=== PATIENT | female | born 1995 | race Caucasian/White ===

== ENCOUNTER 2016-06-02 23:47 | Emergency (ER) | payer MEDICAID ==
[~2016-06-02] VITALS: Ht 165.1 cm; Wt 78.7 kg
[~2016-06-02 23:47] MED LIST: CEFD300C2 PO; HYDR-3240 PO; IBUP-1222 PO; METR500T PO; NAPR-874 PO; OXYC-302 PO; PEDI1TAB24 PO; PREDNISONE
[2016-06-03 00:27] LABS: HCG UR OBC PASS; PATH.CAST-FLAG NOT PRESENT; SPERM-FLAG NOT PRESENT; SRC-FLAG NOT PRESENT; XTAL-FLAG NOT PRESENT; YLC-FLAG NOT PRESENT
[2016-06-03 04:02] LABS: ASPARTATE AMINO TRANSFERASE 12 U/L (15-37); BLOOD UREA NITROGEN 13 mg/dL (7-18)
[2016-06-03 04:49] LABS: PATH.CAST-FLAG NOT PRESENT; SPERM-FLAG NOT PRESENT; SRC-FLAG NOT PRESENT; XTAL-FLAG NOT PRESENT; YLC-FLAG NOT PRESENT
[2016-06-03] MEDS ORDERED: CEFTRIAXONE 250 MG IM ONE (05:00)
[2016-06-03] MEDS ORDERED: AZITHROMYCIN 500 MG TABLET PO ONE (05:00)
[2016-06-03] MEDS ORDERED: CEFTRIAXONE 250 MG ONE (05:36)
[2016-06-03] MEDS ORDERED: LIDOCAINE 1%, 20ML ONE (05:36)
[2016-06-03] MEDS ORDERED: AZITHROMYCIN 500 MG TABLET ONE (05:36)
[2016-06-03 05:46] VITALS: BP 121/74
== END 2016-06-03 05:51 | disposition home or self-care (01) ==
LOC: ED 23:59
DX: N30.90 Cystitis, unspecified without hematuria (principal); R10.84 Generalized abdominal pain; A56.09 Other chlamydial infection of lower genitourinary tract; A54.03 Gonococcal cervicitis, unspecified; N89.8 Other specified noninflammatory disorders of vagina
CPT/HCPCS: 36415; 51701; 80053; 81001; 81025; 83690; 85025; 87086; 87147; 87210; 87491; 87591; 87808; 96372; 99284; J0696; P9612

== ENCOUNTER 2016-08-12 22:54 | Emergency (ER) | payer MEDICAID ==
[~2016-08-12] VITALS: Ht 167.6 cm; Wt 76.6 kg
[~2016-08-12 22:54] MED LIST changes: -CEFD300C2 PO; +CEFD300C37 PO
[2016-08-12 22:58] VITALS: BP 114/72
== END 2016-08-13 00:48 | disposition home or self-care (01) ==
LOC: ED 08-13 00:40
DX: J02.8 Acute pharyngitis due to other specified organisms (principal); B97.89 Other viral agents as the cause of diseases classified elsewhere
CPT/HCPCS: 87081; 87147; 87880; 99284

== ENCOUNTER 2017-04-03 16:22 | Emergency (ER) | payer MEDICAID ==
[~2017-04-03] VITALS: Ht 167.6 cm; Wt 60.6 kg
[~2017-04-03 16:22] MED LIST changes: -NAPR-874 PO; +NAPR250T6 PO
[2017-04-03 17:29] LABS: BASOPHILS # (AUTO) 0.03 x10^3/uL (0-0.1); BASOPHILS % (AUTO) 1 % (0-1); EOSINOPHILS # (AUTO) 0.05 x10^3/uL (0-0.4); EOSINOPHILS % (AUTO) 1 % (1-7); LYMPHOCYTES % (AUTO) 30 % (22-44); MD NO; MEAN CORPUSCULAR HEMOGLOBIN 31.7 pg (27.0-34.8); MEAN CORPUSCULAR HGB CONC 33.5 g/dL (32.4-35.8); MEAN CORPUSCULAR VOLUME 94.5 fL (80-100); MEAN PLATELET VOLUME 7.8 fL (7.4-10.4); MONOCYTES # (AUTO) 0.65 x10^3/uL (0.2-0.8); MONOCYTES % (AUTO) 11 % (2-9); NEUTROPHILS # (AUTO) 3.47 x10^3/uL (1.8-6.8); NEUTROPHILS % (AUTO) 58 % (42-75); PLATELET COUNT 301 x10^3/uL (130-400); RED BLOOD COUNT 4.48 x10^6/uL (3.82-5.3); RED CELL DISTRIBUTION WIDTH 13.2 % (9.6-15.2)
[2017-04-03] MEDS ORDERED: SODIUM CHLORIDE 0.9% 1,000ML IVBOLUS ONE (17:30)
[2017-04-03] MEDS ORDERED: SODIUM CHLORIDE FLUSH 10ML SYR IVF ONE (17:30)
[2017-04-03 17:39] LABS: ALANINE AMINOTRANSFERASE 19 U/L (12-78); ALBUMIN 3.8 g/dL (3.4-5.0); ANION GAP 5 mmol/L (5-15); CALCIUM 8.3 mg/dL (8.5-10.1); CHLORIDE 109 mmol/L (98-107); CREATININE 0.76 mg/dL (0.55-1.02)
[2017-04-03 17:44] LABS: ALKALINE PHOSPHATASE 73 U/L (45-117); BILIRUBIN,TOTAL 0.5 mg/dL (0.2-1.0); CREATINE KINASE, TOTAL 161 U/L (26-192); TOTAL PROTEIN 7.7 g/dL (6.4-8.2)
[2017-04-03 18:35] VITALS: BP 109/46
== END 2017-04-03 19:15 | disposition home or self-care (01) ==
LOC: ED 19:07
DX: J20.8 Acute bronchitis due to other specified organisms (principal)
CPT/HCPCS: 36415; 71046; 80053; 82550; 84703; 85025; 93005; 96360; 99285; J7030

== ENCOUNTER 2017-10-12 21:56 | Emergency (ER) | payer MEDICAID ==
[~2017-10-12] VITALS: Ht 165.1 cm; Wt 67.9 kg
[2017-10-12 23:14] LABS: BASOPHILS # (AUTO) 0.02 x10^3/uL (0-0.1); BASOPHILS % (AUTO) 0 % (0-1); EOSINOPHILS # (AUTO) 0.06 x10^3/uL (0-0.4); EOSINOPHILS % (AUTO) 1 % (1-7); LYMPHOCYTES # (AUTO) 2.08 x10^3/uL (1-3.4); LYMPHOCYTES % (AUTO) 41 % (22-44); MD NO; MEAN CORPUSCULAR HEMOGLOBIN 33.6 pg (27.0-34.8); MEAN CORPUSCULAR HGB CONC 34.6 g/dL (32.4-35.8); MEAN CORPUSCULAR VOLUME 97.2 fL (80-100); MEAN PLATELET VOLUME 7.7 fL (7.4-10.4); MONOCYTES # (AUTO) 0.51 x10^3/uL (0.2-0.8); MONOCYTES % (AUTO) 10 % (2-9); NEUTROPHILS # (AUTO) 2.43 x10^3/uL (1.8-6.8); NEUTROPHILS % (AUTO) 48 % (42-75); PLATELET COUNT 232 x10^3/uL (130-400); RED BLOOD COUNT 3.87 x10^6/uL (3.82-5.3); RED CELL DISTRIBUTION WIDTH 12.5 % (9.6-15.2)
[2017-10-12 23:27] LABS: ALBUMIN 3.5 g/dL (3.4-5.0); ANION GAP 5 mmol/L (5-15); CALCIUM 7.8 mg/dL (8.5-10.1); CHLORIDE 108 mmol/L (98-107); CREATININE 0.65 mg/dL (0.55-1.02)
[2017-10-12 23:32] VITALS: BP 102/53
[2017-10-12 23:33] LABS: MICROSCOPIC NOT IND
[2017-10-12 23:35] LABS: CULTURE INDICATED? NO
== END 2017-10-13 00:17 | disposition home or self-care (01) ==
LOC: ED 23:59
DX: O20.0 Threatened abortion (principal); F17.200 Nicotine dependence, unspecified, uncomplicated; Z3A.00 Weeks of gestation of pregnancy not specified
CPT/HCPCS: 36415; 76801; 80048; 81003; 82040; 84702; 85025; 86901; 99285

== ENCOUNTER 2017-11-30 15:57 | Emergency (ER) | payer MEDICAID ==
[~2017-11-30] VITALS: Ht 165.1 cm; Wt 67.5 kg
[2017-11-30 16:35] LABS: BASOPHILS # (AUTO) 0.01 x10^3/uL (0-0.1); BASOPHILS % (AUTO) 0 % (0-1); EOSINOPHILS # (AUTO) 0.04 x10^3/uL (0-0.4); EOSINOPHILS % (AUTO) 1 % (1-7); LYMPHOCYTES # (AUTO) 1.68 x10^3/uL (1-3.4); LYMPHOCYTES % (AUTO) 24 % (22-44); MD NO; MEAN CORPUSCULAR HEMOGLOBIN 33.1 pg (27.0-34.8); MEAN CORPUSCULAR HGB CONC 34.5 g/dL (32.4-35.8); MEAN CORPUSCULAR VOLUME 95.9 fL (80-100); MEAN PLATELET VOLUME 7.7 fL (7.4-10.4); MONOCYTES # (AUTO) 0.36 x10^3/uL (0.2-0.8); MONOCYTES % (AUTO) 5 % (2-9); NEUTROPHILS # (AUTO) 5.03 x10^3/uL (1.8-6.8); NEUTROPHILS % (AUTO) 71 % (42-75); PLATELET COUNT 251 x10^3/uL (130-400); RED BLOOD COUNT 3.82 x10^6/uL (3.82-5.3); RED CELL DISTRIBUTION WIDTH 12.7 % (9.6-15.2)
[2017-11-30 16:46] LABS: ALBUMIN 3.2 g/dL (3.4-5.0); ANION GAP 5 mmol/L (5-15); CALCIUM 8.5 mg/dL (8.5-10.1); CHLORIDE 109 mmol/L (98-107); CREATININE 0.54 mg/dL (0.55-1.02)
[2017-11-30 18:32] LABS: MICROSCOPIC NOT IND
[2017-11-30 18:40] LABS: CULTURE INDICATED? NO
[2017-11-30 20:13] VITALS: BP 119/71
== END 2017-11-30 20:21 | disposition home or self-care (01) ==
LOC: ED 20:00
DX: O20.0 Threatened abortion (principal); O44.12 Complete placenta previa with hemorrhage, second trimester
CPT/HCPCS: 36415; 76815; 80048; 81003; 82040; 84702; 85025; 86901; 99285

== ENCOUNTER 2018-02-25 21:21 | Outpatient (CLI) | payer MEDICAID ==
[~2018-02-25] VITALS: Ht 167.6 cm; Wt 65.9 kg
[2018-02-25 22:07] LABS: MICROSCOPIC AUTO
[2018-02-25 22:20] LABS: AMPHETAMINE SCREEN, URINE Positive (Negative); BARBITURATE SCREEN, URINE Negative (Negative); BENZODIAZEPINE SCREEN, URINE Negative (Negative); CANNABINOID SCREEN, URINE Negative (Negative); COCAINE SCREEN, URINE Negative (Negative); METHADONE SCREEN, URINE Negative (Negative); OPIATE SCREEN, URINE Negative (Negative)
[2018-02-25 22:26] LABS: BASOPHILS # (AUTO) 0.01 x10^3/uL (0-0.1); BASOPHILS % (AUTO) 0 % (0-1); EOSINOPHILS # (AUTO) 0.04 x10^3/uL (0-0.4); EOSINOPHILS % (AUTO) 1 % (1-7); LYMPHOCYTES # (AUTO) 1.64 x10^3/uL (1-3.4); LYMPHOCYTES % (AUTO) 20 % (22-44); MD NO; MEAN CORPUSCULAR HGB CONC 34.7 g/dL (32.4-35.8); MEAN CORPUSCULAR VOLUME 95.2 fL (80-100); MEAN PLATELET VOLUME 7.6 fL (7.4-10.4); MONOCYTES # (AUTO) 0.58 x10^3/uL (0.2-0.8); MONOCYTES % (AUTO) 7 % (2-9); NEUTROPHILS # (AUTO) 5.92 x10^3/uL (1.8-6.8); NEUTROPHILS % (AUTO) 72 % (42-75); PLATELET COUNT 264 x10^3/uL (130-400); RED BLOOD COUNT 3.33 x10^6/uL (3.82-5.3); RED CELL DISTRIBUTION WIDTH 12.4 % (9.6-15.2)
== END 2018-02-25 23:38 | disposition home or self-care (01) ==
LOC: LDOP 21:21
PROVIDERS: ATTEND Obstetrics & Gynecology
DX: O62.9 Abnormality of forces of labor, unspecified (principal); Z3A.24 24 weeks gestation of pregnancy
CPT/HCPCS: 36415; 59025; 80307; 81001; 84112; 85025; 86592; 86762; 86850; 86900; 87086; 87340; 87806; 99211; G0463; G0475

== ENCOUNTER 2018-03-22 22:50 | Outpatient (CLI) | payer MEDICAID ==
[~2018-03-22] VITALS: Ht 165.1 cm; Wt 79.5 kg
[2018-03-22 22:55] VITALS: BP 112/55
[2018-03-22 23:23] LABS: MICROSCOPIC NOT IND
[2018-03-22] MEDS ORDERED: ACETAMINOPHEN 325 MG TABLET PO PRN (23:30)
[2018-03-22] MEDS ORDERED: PREN1TAB60 PO (23:31)
[2018-03-22] MEDS ORDERED: ACET325T14 PO (23:32)
[2018-03-22] MEDS ORDERED: ACETAMINOPHEN 325 MG TABLET ONE (23:33)
[2018-03-22 23:36] LABS: AMPHETAMINE SCREEN, URINE Negative (Negative); BARBITURATE SCREEN, URINE Negative (Negative); BENZODIAZEPINE SCREEN, URINE Negative (Negative); CANNABINOID SCREEN, URINE Negative (Negative); COCAINE SCREEN, URINE Negative (Negative); METHADONE SCREEN, URINE Negative (Negative); OPIATE SCREEN, URINE Negative (Negative)
== END 2018-03-22 23:59 | disposition home or self-care (01) ==
LOC: LDOP 22:50
PROVIDERS: ATTEND Obstetrics & Gynecology
DX: O26.893 Other specified pregnancy related conditions, third trimester (principal); Z3A.28 28 weeks gestation of pregnancy; R10.9 Unspecified abdominal pain
CPT/HCPCS: 59025; 80307; 81003; 87086; 99211; G0463

== ENCOUNTER 2018-05-20 11:24 | Outpatient (CLI) | payer MEDICAID ==
[~2018-05-20] VITALS: Ht 165.1 cm; Wt 86.4 kg
[~2018-05-20 11:24] MED LIST changes: +ACET325T14 PO; +PREN1TAB60 PO
[2018-05-20 12:56] VITALS: BP 111/61
[2018-05-20 13:17] LABS: MICROSCOPIC AUTO
[2018-05-20 13:24] LABS: AMPHETAMINE SCREEN, URINE Negative (Negative); BARBITURATE SCREEN, URINE Negative (Negative); BENZODIAZEPINE SCREEN, URINE Negative (Negative); CANNABINOID SCREEN, URINE Negative (Negative); COCAINE SCREEN, URINE Negative (Negative); METHADONE SCREEN, URINE Negative (Negative); OPIATE SCREEN, URINE Negative (Negative)
== END 2018-05-20 15:31 | disposition home or self-care (01) ==
LOC: LDOP 11:24
PROVIDERS: ATTEND Obstetrics & Gynecology
DX: Z23 Encounter for immunization (principal); Z34.93 Encounter for supervision of normal pregnancy, unspecified, third trimester; Z3A.36 36 weeks gestation of pregnancy; Z79.899 Other long term (current) drug therapy
CPT/HCPCS: 59025; 80307; 81001; 89060; 90471; 90656; 99211; G0009; G0463; Q0114

== ENCOUNTER 2018-05-28 06:08 | Inpatient (IN) | payer MEDICAID ==
[~2018-05-28] VITALS: Ht 165.1 cm; Wt 84.0 kg
[2018-05-28] MEDS ORDERED: OXYTOCIN 30U/ 0.9% NaCL 500ML 500 ML IV ONE (06:10)
[2018-05-28] MEDS ORDERED: ESCI5TAB7 PO (06:20)
[2018-05-28 06:21] VITALS: BP 119/64
[2018-05-28] MEDS ORDERED: ONDANSETRON 2MG/ML, 2ML IVPush PRN ×2 (06:30→15:00)
[2018-05-28] MEDS ORDERED: FENTANYL PF 100 MCG/2ML IV PRN (06:30)
[2018-05-28] MEDS ORDERED: CALCIUM CARBONATE 500 MG TAB.CHEW PO PRN (06:30)
[2018-05-28] MEDS ORDERED: FENTANYL PF 100 MCG/2ML IVPush PRN (06:30)
[2018-05-28 06:32] LABS: BASOPHILS # (AUTO) 0.04 x10^3/uL (0-0.1); BASOPHILS % (AUTO) 1 % (0-1); EOSINOPHILS # (AUTO) 0.06 x10^3/uL (0-0.4); EOSINOPHILS % (AUTO) 1 % (1-7); LYMPHOCYTES # (AUTO) 2.24 x10^3/uL (1-3.4); LYMPHOCYTES % (AUTO) 30 % (22-44); MD NO; MEAN CORPUSCULAR HEMOGLOBIN 27.9 pg (27.0-34.8); MEAN CORPUSCULAR HGB CONC 33.8 g/dL (32.4-35.8); MEAN CORPUSCULAR VOLUME 82.5 fL (80-100); MEAN PLATELET VOLUME 7.1 fL (7.4-10.4); MONOCYTES # (AUTO) 0.41 x10^3/uL (0.2-0.8); MONOCYTES % (AUTO) 5 % (2-9); NEUTROPHILS # (AUTO) 4.75 x10^3/uL (1.8-6.8); NEUTROPHILS % (AUTO) 63 % (42-75); PLATELET COUNT 285 x10^3/uL (130-400); RED BLOOD COUNT 3.59 x10^6/uL (3.82-5.3); RED CELL DISTRIBUTION WIDTH 15.3 % (9.6-15.2)
[2018-05-28] MEDS: LACTATED RINGERS 1,000 ML IV SCH ×2 (06:42→15:12)
[2018-05-28] MEDS ORDERED: MISOPROSTOL 25 MCG TABLET ONE ×2 (07:00→10:54)
[2018-05-28] MEDS ORDERED: MISOPROSTOL 25 MCG TABLET VG PRN (07:00)
[2018-05-28] MEDS ORDERED: PENICILLIN GK 5,000,000 UNITS in DEXTROSE 5% 100 ML IVPB ONE (07:00)
[2018-05-28 07:06] LABS: AMPHETAMINE SCREEN, URINE Negative (Negative); BARBITURATE SCREEN, URINE Negative (Negative); BENZODIAZEPINE SCREEN, URINE Negative (Negative); CANNABINOID SCREEN, URINE Negative (Negative); COCAINE SCREEN, URINE Negative (Negative); METHADONE SCREEN, URINE Negative (Negative); OPIATE SCREEN, URINE Negative (Negative)
[2018-05-28] MEDS ORDERED: OXYTOCIN 30U/ 0.9% NaCL 500ML 500 ML ONE ×2 (07:39→19:22)
[2018-05-28] MEDS ORDERED: NEWBORN KIT ONE (07:39)
[2018-05-28] MEDS ORDERED: DIPH,PERTUSS(ACELL),TET VAC/PF NC IM-VACC ONE ×3 (10:18→15:25)
[2018-05-28] MEDS ORDERED: FENTANYL/BUPIV./NS/PF 250 ML EPIDCONT SCH ×2 (10:28→14:41)
[2018-05-28] MEDS: PENICILLIN GK 2,500,000 UNITS in DEXTROSE 5% 100 ML IVPB SCH ×2 (11:10→15:04)
[2018-05-28] MEDS ORDERED: OXYTOCIN 30U/ 0.9% NaCL 500ML 500 ML IV PRN (11:15)
[2018-05-28] MEDS ORDERED: FENTANYL PF 500 MCG, BUPIVACAINE/PF 0.5%, 30ML 62.5 ML in SODIUM CHLORIDE 0.9% 177.5 ML EPIDCONT SCH (11:30)
[2018-05-28] MEDS ORDERED: LIDOCAINE 1%, 20ML ONE (12:54)
[2018-05-28] MEDS ORDERED: MISOPROSTOL 200 MCG TABLET ONE (12:55)
[2018-05-28] MEDS ORDERED: LACTATED RINGERS 1,000 ML IV SCH ×2 (13:08→14:41)
[2018-05-28] MEDS ORDERED: LACTATED RINGERS 1,000 ML IVBOLUS PRN ×2 (13:30→15:00)
[2018-05-28] MEDS ORDERED: BUPIVACAINE 0.25% ONE (14:15)
[2018-05-28] MEDS ORDERED: LIDOCAINE/PF 1.5%-EPI 1:200K, 30ML ONE (14:15)
[2018-05-28] MEDS ORDERED: EPHEDRINE 50 MG/ML, 1ML IVPush PRN (15:00)
[2018-05-28] MEDS ORDERED: NALOXONE 0.4 MG/ML, 1ML IVPush PRN (15:00)
[2018-05-28] MEDS ORDERED: DIPHENHYDRAMINE 50 MG/ML, 1ML IVPush PRN (15:00)
[2018-05-28] MEDS ORDERED: BISACODYL 10 MG SUPP PR PRN (19:00)
[2018-05-28] MEDS ORDERED: METHYLERGONOVINE 0.2 MG/ML IM PRN (19:00)
[2018-05-28] MEDS ORDERED: OXYTOCIN 10 UNITS/ML, 1ML IM PRN (19:00)
[2018-05-28] MEDS ORDERED: HYDROcodone/APAP 5/325 TABLET PO PRN (19:00)
[2018-05-28] MEDS ORDERED: DIPH,PERTUSS(ACELL),TET VAC/PF NC IM-VACC PRN (19:00)
[2018-05-28] MEDS ORDERED: MISOPROSTOL 200 MCG TABLET PR PRN (19:00)
[2018-05-28] MEDS: OXYTOCIN 30U/ 0.9% NaCL 500ML 500 ML IV SCH (19:29)
[2018-05-28 21:00] VITALS: BP 103/56
[2018-05-29 00:30] VITALS: BP 109/62
[2018-05-29 02:03] LABS: BASOPHILS # (AUTO) 0.02 x10^3/uL (0-0.1); BASOPHILS % (AUTO) 0 % (0-1); EOSINOPHILS # (AUTO) 0.04 x10^3/uL (0-0.4); EOSINOPHILS % (AUTO) 0 % (1-7); LYMPHOCYTES # (AUTO) 1.94 x10^3/uL (1-3.4); LYMPHOCYTES % (AUTO) 19 % (22-44); MD NO; MEAN CORPUSCULAR HEMOGLOBIN 26.2 pg (27.0-34.8); MEAN CORPUSCULAR HGB CONC 31.5 g/dL (32.4-35.8); MEAN PLATELET VOLUME 7.4 fL (7.4-10.4); MONOCYTES # (AUTO) 0.77 x10^3/uL (0.2-0.8); MONOCYTES % (AUTO) 8 % (2-9); NEUTROPHILS # (AUTO) 7.55 x10^3/uL (1.8-6.8); NEUTROPHILS % (AUTO) 73 % (42-75); PLATELET COUNT 238 x10^3/uL (130-400); RED BLOOD COUNT 3.43 x10^6/uL (3.82-5.3); RED CELL DISTRIBUTION WIDTH 14.6 % (9.6-15.2)
[2018-05-29 04:20] VITALS: BP 105/59
[2018-05-29] MEDS: OXYTOCIN 30U/ 0.9% NaCL 500ML 500 ML IV SCH (04:56)
[2018-05-29 08:55] VITALS: BP 94/62
[2018-05-29] MEDS: DOCUSATE 100 MG CAPSULE PO PRN ×2 (08:59→21:05)
[2018-05-29] MEDS: PRENATAL VIT/IRON/FA 1 EACH TABLET PO SCH (08:59)
[2018-05-29] MEDS: IBUPROFEN 600 MG TABLET PO PRN ×3 (08:59→21:05)
[2018-05-29 12:45] VITALS: BP 107/69
[2018-05-29 16:30] VITALS: BP 108/62
[2018-05-29 20:30] VITALS: BP 125/72
[2018-05-30] MEDS: IBUPROFEN 600 MG TABLET PO PRN ×2 (04:00→11:01)
[2018-05-30 07:35] VITALS: BP 101/63
[2018-05-30] MEDS: DOCUSATE 100 MG CAPSULE PO PRN (11:00)
[2018-05-30] MEDS: PRENATAL VIT/IRON/FA 1 EACH TABLET PO SCH (11:01)
[2018-05-30 11:35] VITALS: BP 114/67
== END 2018-05-30 12:35 | disposition home or self-care (01) | DRG 807 ==
LOC: LDIP 06:08 → 2NW 20:33
PROVIDERS: ADMIT Obstetrics & Gynecology; ATTEND Obstetrics & Gynecology
PROC: 10E0XZZ Delivery of Products of Conception, External Approach (ICD-10-PCS; principal; 2018-05-28)
PROC: 3E033VJ Introduction of Other Hormone into Peripheral Vein, Percutaneous Approach (ICD-10-PCS; 2018-05-28)
PROC: 3E0R3BZ Introduction of Anesthetic Agent into Spinal Canal, Percutaneous Approach (ICD-10-PCS; 2018-05-28)
PROC: 00HU33Z Insertion of Infusion Device into Spinal Canal, Percutaneous Approach (ICD-10-PCS; 2018-05-28)
PROC: 10907ZC Drainage of Amniotic Fluid, Therapeutic from Products of Conception, Via Natural or Artificial Opening (ICD-10-PCS; 2018-05-28)
DX: O69.81X0 Labor and delivery complicated by cord around neck, without compression, not applicable or unspecified (principal); Z37.0 Single live birth; O99.52 Diseases of the respiratory system complicating childbirth; J45.909 Unspecified asthma, uncomplicated; O99.824 Streptococcus B carrier state complicating childbirth; Z3A.39 39 weeks gestation of pregnancy; Z84.89 Family history of other specified conditions; Z91.040 Latex allergy status
CPT/HCPCS: 36415; 80307; 85025; 86850; 86900; 90715; G0378; J2540; J3010; J3490; J2590; J7050; J7120

== ENCOUNTER 2019-06-03 23:22 | Emergency (ER) | payer MEDICAID, OTHER ==
[~2019-06-03] VITALS: Ht 167.6 cm; Wt 85.0 kg
[~2019-06-03 23:22] MED LIST changes: +ESCI5TAB7 PO
[2019-06-03 23:31] VITALS: BP 131/79
[2019-06-04 00:22] LABS: BASOPHILS # (AUTO) 0.02 x10^3/uL (0-0.1); BASOPHILS % (AUTO) 0 % (0-1); EOSINOPHILS # (AUTO) 0.05 x10^3/uL (0-0.4); EOSINOPHILS % (AUTO) 1 % (1-7); LYMPHOCYTES # (AUTO) 1.81 x10^3/uL (1-3.4); LYMPHOCYTES % (AUTO) 34 % (22-44); MD NO; MEAN CORPUSCULAR HEMOGLOBIN 32.1 pg (27.0-34.8); MEAN CORPUSCULAR HGB CONC 33.9 g/dL (32.4-35.8); MEAN CORPUSCULAR VOLUME 94.6 fL (80-100); MEAN PLATELET VOLUME 8.3 fL (7.4-10.4); MONOCYTES # (AUTO) 0.38 x10^3/uL (0.2-0.8); MONOCYTES % (AUTO) 7 % (2-9); NEUTROPHILS % (AUTO) 58 % (42-75); PLATELET COUNT 281 x10^3/uL (130-400); RED BLOOD COUNT 4.51 x10^6/uL (3.82-5.3); RED CELL DISTRIBUTION WIDTH 13.1 % (9.6-15.2)
[2019-06-04 00:29] LABS: ALBUMIN 3.9 g/dL (3.4-5.0); ANION GAP 4 mmol/L (5-15); CALCIUM 8.9 mg/dL (8.5-10.1); CHLORIDE 111 mmol/L (98-107); CREATININE 0.76 mg/dL (0.55-1.02)
[2019-06-04 00:36] LABS: CULTURE INDICATED? YES; MICROSCOPIC INDICATED
== END 2019-06-04 01:54 | disposition home or self-care (01) ==
LOC: ED 06-04 01:08
DX: R10.31 Right lower quadrant pain (principal); R10.32 Left lower quadrant pain; M54.42 Lumbago with sciatica, left side; M54.41 Lumbago with sciatica, right side
CPT/HCPCS: 36415; 76830; 80048; 81001; 82040; 84703; 85025; 87086; 99284

== ENCOUNTER 2019-12-12 08:20 | Emergency (ER) | payer MEDICAID ==
[~2019-12-12] VITALS: Ht 167.6 cm; Wt 65.9 kg
--- NOTE | 2019-12-12 08:59 | NUR ---
first contact with pt. pt c/o right sided flank pain and abd pain x 1 day. pt's aox4. resps even and unlabored. bp/spo2 monitors in place. call light within reach. pa at bedside evaluating at this time.
--- NOTE | 2019-12-12 09:12 | NUR ---
urine collected and ua sent.
[2019-12-12 09:21] LABS: BASOPHILS # (AUTO) 0.03 x10^3/uL (0-0.1); BASOPHILS % (AUTO) 0 % (0-1); EOSINOPHILS # (AUTO) 0.06 x10^3/uL (0-0.4); EOSINOPHILS % (AUTO) 1 % (1-7); LYMPHOCYTES # (AUTO) 1.88 x10^3/uL (1-3.4); LYMPHOCYTES % (AUTO) 29 % (22-44); MD NO; MEAN PLATELET VOLUME 7.2 fL (7.4-10.4); MONOCYTES # (AUTO) 0.39 x10^3/uL (0.2-0.8); MONOCYTES % (AUTO) 6 % (2-9); NEUTROPHILS # (AUTO) 4.14 x10^3/uL (1.8-6.8); NEUTROPHILS % (AUTO) 64 % (42-75); PLATELET COUNT 300 x10^3/uL (130-400); RED BLOOD COUNT 3.85 x10^6/uL (3.82-5.3); RED CELL DISTRIBUTION WIDTH 12.5 % (9.6-15.2)
[2019-12-12 09:23] LABS: MICROSCOPIC INDICATED
[2019-12-12 09:33] LABS: ALANINE AMINOTRANSFERASE 18 U/L (12-78); ALBUMIN 3.2 g/dL (3.4-5.0); ANION GAP 6 mmol/L (5-15); CALCIUM 8.5 mg/dL (8.5-10.1); CHLORIDE 109 mmol/L (98-107); CREATININE 0.63 mg/dL (0.55-1.02)
--- NOTE | 2019-12-12 09:38 | NUR ---
warm blanket provided per request at this time.
[2019-12-12 09:50] LABS: ALKALINE PHOSPHATASE 52 U/L (45-117); BILIRUBIN,TOTAL 0.3 mg/dL (0.2-1.0); TOTAL PROTEIN 6.9 g/dL (6.4-8.2)
[2019-12-12 10:54] VITALS: BP 108/56
--- NOTE | 2019-12-12 11:01 | NUR ---
PT REPORT FROM DEEPTI NEWBERRY. PT CARE ASSUMED. PT RESTING QUIETLY ON GURNEY, DENIES PAIN CURRENTLY, RESP EVEN & UNLABORED, SPEECH CLEAR, SKIN WNL. SIDE RAIL UP X1, CALL LIGHT W/IN REACH.
== END 2019-12-12 11:46 | disposition home or self-care (01) ==
LOC: ED 09:06
DX: O23.41 Unspecified infection of urinary tract in pregnancy, first trimester (principal); Z3A.10 10 weeks gestation of pregnancy
CPT/HCPCS: 36415; 76830; 80053; 81001; 83690; 84702; 84703; 85025; 87086; 99284

== ENCOUNTER 2020-01-03 15:39 | Emergency (ER) | payer MEDICAID ==
[~2020-01-03] VITALS: Ht 167.6 cm; Wt 66.2 kg
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
[2020-01-03] MEDS ORDERED: PREN1TAB60 PO (16:19)
--- NOTE | 2020-01-03 16:20 | NUR ---
ARINA IN SW/CASE MGMT PAGED FOR PT EVAL
--- NOTE | 2020-01-03 16:30 | NUR ---
PT TO RAD/CT
--- NOTE | 2020-01-03 16:44 | NUR ---
BEDSIDE REPORT AND TRANSFER OF CARE TO VINEET TATUM AT THIS TIME.
--- NOTE | 2020-01-03 16:54 | NUR ---
SW AT BEDSIDE.
--- NOTE | 2020-01-03 17:01 | NUR ---
PT VOICEING CONCERNS ABOUT THE 2/2 TO THE STRANGULATION. C/O INTERMITTANT VAGINAL CRAMPING BUT DENIES ANY DISCHARGE OR BLEEDING
--- NOTE | 2020-01-03 17:05 | NUR ---
ER PA INFORMED OF PT CONCERN FOR . NO NEW ORDERS REC'D PT TO F/U WITH CENTER
[2020-01-03 17:43] LABS: BASOPHILS % (AUTO) 0 % (0-1); EOSINOPHILS % (AUTO) 1 % (1-7); LYMPHOCYTES % (AUTO) 19 % (22-44); MEAN CORPUSCULAR HEMOGLOBIN 32.5 pg (27.0-34.8); MEAN CORPUSCULAR HGB CONC 33.8 g/dL (32.4-35.8); MEAN PLATELET VOLUME 7.5 fL (7.4-10.4); MONOCYTES % (AUTO) 8 % (2-9); NEUTROPHILS % (AUTO) 72 % (42-75); PLATELET COUNT 255 x10^3/uL (130-400); RED BLOOD COUNT 3.83 x10^6/uL (3.82-5.3); RED CELL DISTRIBUTION WIDTH 12.5 % (9.6-15.2)
[2020-01-03 17:48] LABS: ANION GAP 6 mmol/L (5-15); CALCIUM 8.5 mg/dL (8.5-10.1); CHLORIDE 110 mmol/L (98-107); CREATININE 0.59 mg/dL (0.55-1.02)
[2020-01-03 17:50] LABS: MD NO
[2020-01-03 18:35] VITALS: BP 108/65
--- NOTE | 2020-01-03 18:36 | NUR ---
Patient/Caregiver given discharge instructions and they have confirmed that they understand the instructions. Patient ambulatory with steady gait.
== END 2020-01-03 18:37 | disposition home or self-care (01) ==
LOC: ED 18:11
DX: O26.892 Other specified pregnancy related conditions, second trimester (principal); S16.1XXA Strain of muscle, fascia and tendon at neck level, initial encounter; R55 Syncope and collapse; F17.210 Nicotine dependence, cigarettes, uncomplicated; Z3A.14 14 weeks gestation of pregnancy; Y04.8XXA Assault by other bodily force, initial encounter; Y93.89 Activity, other specified; Y92.89 Other specified places as the place of occurrence of the external cause; Y99.8 Other external cause status
CPT/HCPCS: 36415; 71045; 72125; 80048; 82040; 85025; 99285; 99406

== ENCOUNTER 2020-06-26 11:19 | Inpatient (IN) | payer MEDICAID ==
[~2020-06-26] VITALS: Ht 167.6 cm; Wt 90.0 kg
[~2020-06-26 11:19] MED LIST changes: +HYDR-1067 PO; -HYDR-3240 PO; +NAPR-872 PO; -NAPR250T6 PO; -OXYC-302 PO; +OXYC1TAB14 PO
[2020-06-26] MEDS ORDERED: OXYTOCIN 30U/ 0.9% NaCL 500ML 500 ML ONE (14:59)
[2020-06-26] MEDS ORDERED: NEWBORN KIT ONE (14:59)
[2020-06-26] MEDS ORDERED: SODIUM CITRATE/CITRIC ACID 15 ML UDC ONE (14:59)
[2020-06-26] MEDS ORDERED: LACTATED RINGERS 1,000 ML IVBOLUS ONE (15:00)
[2020-06-26] MEDS ORDERED: SODIUM CITRATE/CITRIC ACID 30 ML UDC PO ONE (15:00)
[2020-06-26] MEDS ORDERED: METOCLOPRAMIDE 5 MG/ML, 2ML IV ONE (15:00)
[2020-06-26] MEDS ORDERED: ONDANSETRON 2MG/ML, 2ML IVPush ONE (15:00)
[2020-06-26 15:35] LABS: BASOPHILS % (AUTO) 0 % (0-1); EOSINOPHILS % (AUTO) 0 % (1-7); LYMPHOCYTES % (AUTO) 17 % (22-44); MEAN CORPUSCULAR HEMOGLOBIN 25.7 pg (27.0-34.8); MEAN CORPUSCULAR HGB CONC 32.5 g/dL (32.4-35.8); MEAN PLATELET VOLUME 7.4 fL (7.4-10.4); MONOCYTES % (AUTO) 5 % (2-9); NEUTROPHILS % (AUTO) 77 % (42-75); PLATELET COUNT 322 x10^3/uL (130-400); RED BLOOD COUNT 3.37 x10^6/uL (3.82-5.3); RED CELL DISTRIBUTION WIDTH 15.8 % (9.6-15.2)
[2020-06-26 15:36] LABS: MD NO
[2020-06-26] MEDS ORDERED: MEPERIDINE/PF 25MG/0.5ML IVPush PRN (17:00)
[2020-06-26] MEDS ORDERED: morphine SULFATE 10 MG/ML, 1ML IVPush PRN (17:00)
[2020-06-26] MEDS ORDERED: EPHEDRINE 50 MG/ML, 1ML IVPush PRN (17:00)
[2020-06-26] MEDS ORDERED: PROMETHAZINE 12.5 MG SUPP PR PRN (17:00)
[2020-06-26] MEDS: LACTATED RINGERS 1,000 ML IV SCH ×4 (17:00→23:00)
[2020-06-26] MEDS ORDERED: ACETAMINOPHEN 325 MG TABLET PO PRN ×2 (17:00→20:30)
[2020-06-26] MEDS ORDERED: OXYcodone 5 MG/5 ML ORAL.SOL UDC PO PRN (17:00)
[2020-06-26] MEDS ORDERED: FENTANYL PF 100 MCG/2ML IV PRN (17:00)
[2020-06-26] MEDS ORDERED: ONDANSETRON 2MG/ML, 2ML IVPush PRN (17:00)
[2020-06-26 18:06] LABS: AMPHETAMINE SCREEN, URINE Negative (Negative); BARBITURATE SCREEN, URINE Negative (Negative); BENZODIAZEPINE SCREEN, URINE Negative (Negative); CANNABINOID SCREEN, URINE Negative (Negative); COCAINE SCREEN, URINE Negative (Negative); METHADONE SCREEN, URINE Negative (Negative); OPIATE SCREEN, URINE Negative (Negative)
[2020-06-26] MEDS ORDERED: ONDANSETRON ODT 4 MG ONE (18:28)
[2020-06-26 20:30] VITALS: BP 101/53
[2020-06-26] MEDS ORDERED: IBUPROFEN 600 MG TABLET PO PRN (20:30)
[2020-06-26] MEDS ORDERED: MEPERIDINE/PF 50 MG/ML IM PRN (20:30)
[2020-06-26] MEDS ORDERED: METOCLOPRAMIDE 5 MG/ML, 2ML IV PRN (20:30)
[2020-06-26] MEDS ORDERED: SIMETHICONE 80 MG CHEW TAB PO PRN (20:30)
[2020-06-26] MEDS ORDERED: ONDANSETRON 2MG/ML, 2ML IV PRN (20:30)
[2020-06-26] MEDS ORDERED: OXYcodone IR 5MG TABLET PO PRN ×2 (20:30)
[2020-06-26] MEDS ORDERED: CARBOPROST TROMETHAMINE 250 MCG/ML, 1ML IM PRN (20:30)
[2020-06-26] MEDS: OXYTOCIN 30U/ 0.9% NaCL 500ML 500 ML IV SCH (20:30)
[2020-06-26] MEDS ORDERED: TRANEXAMIC ACID 100 MG/ML, 10ML IV ONE (20:30)
[2020-06-26] MEDS ORDERED: OXYcodone/APAP 5/325MG TABLET PO PRN (20:30)
[2020-06-26] MEDS ORDERED: TRANEXAMIC ACID 1,000 MG in SODIUM CHLORIDE 0.9% 100 ML IVPB ONE (20:30)
[2020-06-26] MEDS ORDERED: DIPHENHYDRAMINE 50 MG/ML, 1ML IVPush PRN (23:00)
[2020-06-27] MEDS: KETOROLAC 30 MG/1 ML IV PRN ×4 (00:12→18:54)
[2020-06-27 01:00] VITALS: BP 105/51
[2020-06-27 03:00] LABS: BASOPHILS % (AUTO) 0 % (0-1); EOSINOPHILS % (AUTO) 0 % (1-7); LYMPHOCYTES % (AUTO) 17 % (22-44); MEAN CORPUSCULAR HEMOGLOBIN 25.8 pg (27.0-34.8); MEAN CORPUSCULAR HGB CONC 32.5 g/dL (32.4-35.8); MEAN PLATELET VOLUME 7.8 fL (7.4-10.4); MONOCYTES % (AUTO) 6 % (2-9); NEUTROPHILS % (AUTO) 76 % (42-75); PLATELET COUNT 235 x10^3/uL (130-400); RED BLOOD COUNT 2.74 x10^6/uL (3.82-5.3); RED CELL DISTRIBUTION WIDTH 15.9 % (9.6-15.2)
[2020-06-27 03:01] LABS: MD NO
[2020-06-27] MEDS: OXYcodone/APAP 5/325MG TABLET PO PRN ×5 (04:01→20:47)
[2020-06-27 04:28] VITALS: BP 94/52
[2020-06-27] MEDS: LACTATED RINGERS 1,000 ML IV SCH ×5 (04:38→16:30)
[2020-06-27] MEDS: OXYTOCIN 30U/ 0.9% NaCL 500ML 500 ML IV SCH (06:30)
[2020-06-27] MEDS: MEPERIDINE/PF 25MG/0.5ML IM PRN ×2 (07:40→11:19)
[2020-06-27] MEDS: PRENATAL VIT/IRON/FA 1 EACH TABLET PO SCH (07:40)
[2020-06-27] MEDS: DOCUSATE 100 MG CAPSULE PO PRN ×2 (07:40→20:46)
[2020-06-27 07:50] VITALS: BP 101/56
[2020-06-27] MEDS ORDERED: MEPERIDINE/PF 50 MG/ML ONE (11:08)
[2020-06-27 12:20] VITALS: BP 91/45
[2020-06-27 16:45] VITALS: BP 100/68
[2020-06-27] MEDS ORDERED: NICOTINE 14MG/24 HR PATCH.TD24 TD PRN (19:30)
[2020-06-27 19:39] VITALS: BP 100/61
[2020-06-27] MEDS: BUSPIRONE 5 MG TABLET PO SCH (21:01)
[2020-06-28] MEDS: KETOROLAC 30 MG/1 ML IVPush SCH ×3 (01:06→13:01)
[2020-06-28] MEDS: OXYcodone/APAP 5/325MG TABLET PO PRN ×3 (01:06→09:41)
[2020-06-28] MEDS: LACTATED RINGERS 1,000 ML IV SCH ×2 (02:30→12:30)
[2020-06-28 07:05] VITALS: BP 111/68
[2020-06-28] MEDS: DOCUSATE 100 MG CAPSULE PO PRN (07:10)
[2020-06-28] MEDS: PRENATAL VIT/IRON/FA 1 EACH TABLET PO SCH (07:11)
[2020-06-28] MEDS ORDERED: OXYC1TAB14 PO ×2 (08:00→12:24)
[2020-06-28] MEDS ORDERED: IBUP-1223 PO (08:00)
[2020-06-28] MEDS ORDERED: DOCU-131 PO (08:00)
[2020-06-28] MEDS: BUSPIRONE 5 MG TABLET PO SCH (08:33)
[2020-06-28] MEDS ORDERED: ESCITALOPRAM 10MG TABLET PO SCH (09:00)
[2020-06-28] MEDS ORDERED: DIPH,PERTUSS(ACELL),TET VAC/PF NC IM-VACC ONE ×2 (12:45→13:00)
== END 2020-06-28 17:21 | disposition home or self-care (01) | DRG 785 ==
LOC: LDIP 14:40 → 2NW 20:30
PROVIDERS: ADMIT Obstetrics & Gynecology; ATTEND Obstetrics & Gynecology
PROC: 0UB70ZZ Excision of Bilateral Fallopian Tubes, Open Approach (ICD-10-PCS; principal; 2020-06-26)
PROC: 10D00Z1 Extraction of Products of Conception, Low, Open Approach (ICD-10-PCS; 2020-06-26)
DX: O13.4 Gestational [pregnancy-induced] hypertension without significant proteinuria, complicating childbirth (principal); O40.3XX0 Polyhydramnios, third trimester, not applicable or unspecified; Z20.822 Contact with and (suspected) exposure to COVID-19; O99.344 Other mental disorders complicating childbirth; O99.52 Diseases of the respiratory system complicating childbirth; O99.824 Streptococcus B carrier state complicating childbirth; O99.02 Anemia complicating childbirth; O32.1XX0 Maternal care for breech presentation, not applicable or unspecified; F31.9 Bipolar disorder, unspecified; F41.8 Other specified anxiety disorders; J45.909 Unspecified asthma, uncomplicated; Z37.0 Single live birth; Z3A.38 38 weeks gestation of pregnancy; Z23 Encounter for immunization
CPT/HCPCS: 36415; 80307; 85025; 86592; 86762; 86850; 86900; 87340; 87635; 87806; 88302; 90715; G0378; J1885; J2175; J2405; G0475; J2765; J7120